=== PATIENT | female | born 1945 | race Two or more races ===

== ENCOUNTER 2018-10-20 15:00 | Emergency (ER) | payer MEDICARE, MEDICAID ==
[~2018-10-20] VITALS: Ht 167.6 cm; Wt 96.2 kg
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
[2018-10-20] MEDS ORDERED: ACETAMINOPHEN ES 500 MG TABLET ONE (15:27)
[2018-10-20] MEDS ORDERED: IBUPROFEN 400 MG TABLET ONE (15:27)
[2018-10-20] MEDS ORDERED: IBUPROFEN 400 MG TABLET PO ONE (15:30)
[2018-10-20] MEDS ORDERED: ACETAMINOPHEN 325 MG TABLET PO ONE (15:30)
[2018-10-20 17:15] VITALS: BP 150/80
== END 2018-10-20 17:15 | disposition home or self-care (01) ==
LOC: ER 15:08
DX: S13.4XXA Sprain of ligaments of cervical spine, initial encounter (principal); S20.219A Contusion of unspecified front wall of thorax, initial encounter; I10 Essential (primary) hypertension; V49.49XA Driver injured in collision with other motor vehicles in traffic accident, initial encounter; Y93.89 Activity, other specified; Y92.410 Unspecified street and highway as the place of occurrence of the external cause; Y99.8 Other external cause status
CPT/HCPCS: 71045; 93005; 99283; A4606; Z7610

== ENCOUNTER 2024-09-21 10:36 | Inpatient (IN) | payer MEDICARE, OTHER ==
[~2024-09-21] VITALS: Ht 157.5 cm; Wt 97.5 kg
[2024-09-21] MEDS: IV NS 0.9% 500 ML BAG IV ONE (11:00)
[2024-09-21 11:24] LABS: BASOPHILS % (AUTO) 0.3 % (0.0-2.0); HEMATOCRIT 37 % (33-45); HEMOGLOBIN 12.5 g/dL (11.5-14.8); LYMPHOCYTES # (AUTO) 0.5 K/uL (0.8-4.8); LYMPHOCYTES % (AUTO) 8.1 % (20.0-44.0); MEAN CORPUSCULAR HEMOGLOBIN 30 PG (26.0-33.0); MEAN CORPUSCULAR HGB CONC 34 g/dl (31.0-36.0); MEAN CORPUSCULAR VOLUME 91 fL (82-100); MONOCYTES # (AUTO) 0.4 K/uL (0.1-1.30); MONOCYTES % (AUTO) 5.9 % (2.0-12.0); NEUTROPHILS # (AUTO) 5.7 K/uL (1.8-8.9); NEUTROPHILS % (AUTO) 85.7 % (43.0-81.0); PLATELET COUNT (AUTO) 111 K/uL (150-450); RED BLOOD CELL COUNT(AUTO) 4.12 MIL/uL (4.0-5.2); RED CELL DISTRIBUTION WIDTH 13.5 % (11.5-15.0); WHITE BLOOD COUNT (AUTO) 6.7 K/uL (4.3-11.0)
[2024-09-21 11:31] LABS: CALCIUM, SERUM 8.5 mg/dL (8.5-10.1); CARBON DIOXIDE 34 mmol/L (21-32); CHLORIDE 94 mmol/L (98-107); CREATININE 0.9 mg/dL (0.6-1.3); GLUCOSE 120 mg/dL (74-106); POTASSIUM 3.3 mmol/L (3.5-5.1); SODIUM SERUM 135 mmol/L (136-145); UREA NITROGEN, BLOOD 14 mg/dL (7-18)
[2024-09-21] MEDS ORDERED: CYCL30DR EACHEYE (12:36)
[2024-09-21] MEDS ORDERED: ALEN70TA3 PO (12:36)
[2024-09-21] MEDS ORDERED: DICL100G26 TP (12:36)
[2024-09-21] MEDS ORDERED: FURO-144 PO (12:36)
[2024-09-21] MEDS ORDERED: VALS1TAB6 PO (12:36)
[2024-09-21] MEDS ORDERED: AZIT250T13 PO (12:36)
[2024-09-21] MEDS ORDERED: ERGO500093 PO (12:36)
[2024-09-21] MEDS ORDERED: ATOR20TA PO (12:36)
[2024-09-21] MEDS ORDERED: ICOS1CAP PO (12:36)
[2024-09-21] MEDS ORDERED: CARV12.5 PO (12:36)
[2024-09-21] MEDS ORDERED: ASPI-1169 PO (12:36)
[2024-09-21] MEDS ORDERED: TRAM50TA2 PO (12:36)
[2024-09-21] MEDS ORDERED: IBUP-1955 PO (12:36)
[2024-09-21] MEDS ORDERED: Z GUARD REMEDY 4 OZ OINT TP PRN (14:00)
[2024-09-21] MEDS ORDERED: ONDANSETRON HCL/PF 4 MG/2 ML VIAL IVP PRN (14:00)
[2024-09-21] MEDS ORDERED: AZITHROMYCIN 500 MG in IV D5W 250 ML IV SCH (14:00)
[2024-09-21] MEDS ORDERED: MAG HYDROX/AL HYDROX/SIMETH 30 ML UDC PO PRN (14:00)
[2024-09-21] MEDS ORDERED: MAGNESIUM HYDROXIDE 30 ML UDC PO PRN (14:00)
[2024-09-21 17:00] VITALS: BP 138/73; TEMP 101; O2SAT 92
[2024-09-21] MEDS: ACETAMINOPHEN 325 MG TABLET PO PRN (17:13)
[2024-09-21] MEDS: CARVEDILOL 12.5 MG TABLET PO SCH (17:14)
[2024-09-21] MEDS: POTASSIUM CHLORIDE 20 MEQ TAB.PRT.SR PO ONE (18:36)
[2024-09-21] MEDS: AZITHROMYCIN 500 MG in IV D5W 250 ML IV SCH (18:37)
[2024-09-21 20:00] VITALS: BP 70/40; TEMP 97.8; O2SAT 95
[2024-09-21] MEDS: IV NS 0.9% 500 ML IV STA (21:30)
[2024-09-21 22:40] VITALS: BP 100/62; O2SAT 96
[2024-09-21 23:16] VITALS: BP 103/55; O2SAT 96
[2024-09-22] VITALS: BP 103/57; TEMP 98.2; O2SAT 98
[2024-09-22 04:00] VITALS: BP 123/69; TEMP 98.1; O2SAT 96
[2024-09-22 05:30] VITALS: BP_SYST 109; BP_SYST 121; BP_SYST 122; BP_DIAS 60; BP_DIAS 66; BP_DIAS 79; O2SAT 96
[2024-09-22 05:36] VITALS: O2SAT 95
[2024-09-22 06:45] LABS: BASOPHILS % (AUTO) 0.3 % (0.0-2.0); EOSINOPHILS % (AUTO) 0.4 % (0.0-6.0); HEMATOCRIT 36 % (33-45); HEMOGLOBIN 11.8 g/dL (11.5-14.8); LYMPHOCYTES # (AUTO) 0.7 K/uL (0.8-4.8); LYMPHOCYTES % (AUTO) 18.9 % (20.0-44.0); MEAN CORPUSCULAR HEMOGLOBIN 30 PG (26.0-33.0); MEAN CORPUSCULAR HGB CONC 33 g/dl (31.0-36.0); MEAN CORPUSCULAR VOLUME 92 fL (82-100); MONOCYTES # (AUTO) 0.4 K/uL (0.1-1.30); MONOCYTES % (AUTO) 9.7 % (2.0-12.0); NEUTROPHILS # (AUTO) 2.6 K/uL (1.8-8.9); NEUTROPHILS % (AUTO) 70.7 % (43.0-81.0); PLATELET COUNT (AUTO) 106 K/uL (150-450); RED BLOOD CELL COUNT(AUTO) 3.93 MIL/uL (4.0-5.2); RED CELL DISTRIBUTION WIDTH 13.5 % (11.5-15.0); WHITE BLOOD COUNT (AUTO) 3.7 K/uL (4.3-11.0)
[2024-09-22 07:01] LABS: ALANINE AMINOTRANSFERASE 24 U/L (12-78); ALKALINE PHOSPHATASE 45 U/L (46-116); ASPARTATE AMINOTRANSFERASE 32 U/L (15-37); BILIRUBIN,TOTAL 0.3 mg/dL (0.2-1.0); CALCIUM, SERUM 8.4 mg/dL (8.5-10.1); CARBON DIOXIDE 36 mmol/L (21-32); CHLORIDE 100 mmol/L (98-107); CREATININE 0.8 mg/dL (0.6-1.3); GLUCOSE 102 mg/dL (74-106); MAGNESIUM 2.1 mg/dL (1.8-2.4); PHOSPHORUS 3.4 mg/dL (2.5-4.9); POTASSIUM 3.2 mmol/L (3.5-5.1); SODIUM SERUM 140 mmol/L (136-145); TOTAL PROTEIN, SERUM 6.7 g/dL (6.4-8.2); UREA NITROGEN, BLOOD 12 mg/dL (7-18)
[2024-09-22 08:00] VITALS: BP 118/57; TEMP 97.5; O2SAT 90
[2024-09-22] MEDS: ATORVASTATIN 10 MG TABLET PO SCH (08:50)
[2024-09-22] MEDS: POTASSIUM CHLORIDE 20 MEQ TAB.PRT.SR PO SCH (08:50)
[2024-09-22] MEDS: ASPIRIN 81 MG TAB.CHEW PO SCH (08:50)
[2024-09-22] MEDS: HYDROCHLOROTHIAZIDE 25 MG TABLET PO SCH (08:51)
[2024-09-22] MEDS: VALSARTAN 80 MG TABLET PO SCH (08:51)
[2024-09-22] MEDS ORDERED: Medication Not On Formulary EA (Cyclosporine (Restasis) 1 DROP) EACHEYE SCH (09:00)
[2024-09-22] MEDS ORDERED: Medication Not On Formulary EA (Icosapent Ethyl (Vascepa) 1 GM) PO SCH (09:00)
[2024-09-22 20:00] VITALS: BP 118/71; TEMP 98.2; O2SAT 95
[2024-09-23] VITALS: BP 123/64; TEMP 98.2; O2SAT 95
[2024-09-23 05:00] VITALS: BP 126/55; TEMP 98.2; O2SAT 94
[2024-09-23 06:24] LABS: CALCIUM, SERUM 8.3 mg/dL (8.5-10.1); CARBON DIOXIDE 33 mmol/L (21-32); CHLORIDE 104 mmol/L (98-107); CREATININE 0.6 mg/dL (0.6-1.3); GLUCOSE 102 mg/dL (74-106); POTASSIUM 3.9 mmol/L (3.5-5.1); SODIUM SERUM 141 mmol/L (136-145); UREA NITROGEN, BLOOD 9 mg/dL (7-18)
[2024-09-23 06:29] LABS: BASOPHILS % (AUTO) 0.4 % (0.0-2.0); EOSINOPHILS % (AUTO) 0.2 % (0.0-6.0); HEMATOCRIT 36 % (33-45); HEMOGLOBIN 11.8 g/dL (11.5-14.8); LYMPHOCYTES # (AUTO) 1.1 K/uL (0.8-4.8); LYMPHOCYTES % (AUTO) 33.9 % (20.0-44.0); MEAN CORPUSCULAR HEMOGLOBIN 30 PG (26.0-33.0); MEAN CORPUSCULAR HGB CONC 33 g/dl (31.0-36.0); MEAN CORPUSCULAR VOLUME 92 fL (82-100); MONOCYTES # (AUTO) 0.4 K/uL (0.1-1.30); MONOCYTES % (AUTO) 12.8 % (2.0-12.0); NEUTROPHILS # (AUTO) 1.7 K/uL (1.8-8.9); NEUTROPHILS % (AUTO) 52.7 % (43.0-81.0); PLATELET COUNT (AUTO) 120 K/uL (150-450); RED BLOOD CELL COUNT(AUTO) 3.87 MIL/uL (4.0-5.2); RED CELL DISTRIBUTION WIDTH 13.4 % (11.5-15.0); WHITE BLOOD COUNT (AUTO) 3.2 K/uL (4.3-11.0)
[2024-09-23 08:00] VITALS: BP 109/69; TEMP 97.6; O2SAT 95
[2024-09-23 12:00] VITALS: BP 114/62; TEMP 97.8
[2024-09-23] MEDS: SOD FERRIC GLUC 125 MG in IV NS 0.9% 100 ML IV SCH (13:57)
[2024-09-23] MEDS ORDERED: AZITHROMYCIN 250 MG TABLET PO SCH (17:00)
[2024-09-24] MEDS ORDERED: ALENDRONATE 70 MG TABLET PO SCH (07:00)
[2024-09-24] MEDS ORDERED: ERGOCALCIFEROL (VITAMIN D 2) 50,000 UNIT CAPSULE PO SCH (15:05)
== END 2024-09-23 16:04 | disposition home health service (06) | DRG 74 ==
LOC: ER 10:38 → TELE 14:28
PROVIDERS: ADMIT Nurse Practitioner Acute Care; ATTEND Nurse Practitioner Acute Care
DX: G90.89 Other disorders of autonomic nervous system (principal); I50.32 Chronic diastolic (congestive) heart failure; I11.0 Hypertensive heart disease with heart failure; G47.33 Obstructive sleep apnea (adult) (pediatric); E66.01 Morbid (severe) obesity due to excess calories; Z68.39 Body mass index [BMI] 39.0-39.9, adult; J06.9 Acute upper respiratory infection, unspecified; E78.5 Hyperlipidemia, unspecified; M81.0 Age-related osteoporosis without current pathological fracture; E87.6 Hypokalemia; R53.1 Weakness; R73.9 Hyperglycemia, unspecified; M15.9 Polyosteoarthritis, unspecified
CPT/HCPCS: 36415; 71045-TC; 71250-TC; 80048-TC; 80053-TC; 80061-TC; 82728-TC; 83540-TC; 83735-TC; 84100-TC; 84439-TC; 84443-TC; 84484-TC; 85025-TC; 93307-TC; 94761-TC; 94799-TC; 97110-TC; 97116-TC; 97530-TC; A4223; G0378; J0456; J2916; J7030; J7040; J7050; J7060